=== PATIENT | male | born 1975 | race Caucasian/White ===

== ENCOUNTER 2020-03-20 09:31 | Emergency (ER) | payer OTHER, MEDICAID, SELFPAY ==
[2020-03-20 09:55] VITALS: BP 116/78; PULSE 65; RESP 16; TEMP 36.9; O2SAT 99
--- NOTE | 2020-03-20 10:16 | ED.UPPEXIN ---
HPI - Extremity Injury (Upper) General Chief Complaint: Extremity Injury, Upper Stated Complaint: cut left hand pointer finger Time Seen by Provider: 03/20/20 10:04 Source: patient Mode of arrival: Ambulatory Limitations: no limitations History of Present Illness HPI narrative: This is a 45-year-old male who comes to the emergency department with complaint of laceration to his 2nd finger on his left hand. He states he was cutting carrots when he sliced through the distal end at an angle striking a little bit of the nail. Patient denies any numbness or tingling. He states that has been bleeding. He denies any other injuries. He is unsure if his tetanus is up-to-date he thinks he might have received 2 years ago at a well check. Patient denies any other medical issues, no anticoagulant. He has not taken anything for pain. He is right-hand dominant, he does play [id number] regularly for hobby. Related Data Previous Rx's Medication Instructions Recorded oxycodone-acetaminophen 5 mg-325 See Rx Instructions PO Q4-6H PRN 08/17/18 mg tablet #14 tab Allergies Allergy/AdvReac Type Severity Reaction Status Date / Time No Known Drug Allergies Allergy Verified 08/23/18 14:17 Review of Systems Review of Systems ROS Unobtainable: All systems reviewed & are unremarkable except as noted in HPI and below Patient History Medical History (Updated 03/20/20 @ 10:19 by Kyara Adkins DO) Chicken pox (~1989) Family History Mother Parkinson's disease Grandfather Stroke Grandmother Cancer Grandfather Stroke Social History marital status: number of children: 1 household members: family education level: college 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 RESPIRATORY: Breath sounds equal bilaterally, no wheezes rales or rhonchi EXTREMITIES: Normal range of motion, no clubbing or edema. Neurovascularly intact. Patient has a laceration on the medial distal finger with an avulsion, includes the lateral edge of the nail. Cap refills less than 2 seconds. There is some active oozing of blood. Skin is flap down over the subcutaneous tissue. No obvious bony intervention. No tendon involvement noted. Patient does have full range of motion. NEUROLOGICAL: Cranial nerves II through XII grossly intact. Moving all extremities SKIN: Warm, dry, no petechiae, no rashes or lesions other than above. Initial Vital Signs Initial Vital Signs: Vital Signs Temperature 98.4 F 03/20/20 09:55 Pulse Rate 65 03/20/20 09:55 Respiratory Rate 16 03/20/20 09:55 Blood Pressure 116/78 03/20/20 09:55 Pulse Oximetry 99 03/20/20 09:55 Procedures Laceration Repair Laceration 1: Site: hand (2nd finger) Side (If applicable): left Size (cm): 1 Description: flap and irregular Depth: simple, single layer Local Anesthetic: lidocaine 1% Amount of anesthesia used (mL): 1 Pre-repair: wound explored, irrigated extensively and deep structures intact Skin layer closed with: steri-strips Size (cm): 5-0 (3) Number of sutures: 3 Technique: simple, interrupted Course Orders Ordered: ED Orders 03/20/20 10:15 XR finger LT min 2V Stat Discontinued Medications Acetaminophen (Acetaminophen 325 Mg Tablet) 650 mg PO NOW ONE Stop: 03/20/20 10:16 Last Admin: 03/20/20 10:27 Dose: 650 mg Documented by: SUSAN Diphtheria/Tetanus/Acell Pertussis (Tet,Diph,Pertuss(Acell),Vac/Pf 0.5 Ml Syringe) 0.5 ml IM .ONCE ONE Stop: 03/20/20 10:16 Last Admin: 03/20/20 10:27 Dose: 0.5 ml Documented by: SUSAN Lidocaine/Sodium Bicarbonate (Lido 1%/Sod Bicarb 8.4% (10ml) 10 Ml Syringe) 10 ml INJ NOW ONE Stop: 03/20/20 10:17 Last Admin: 03/20/20 10:27 Dose: 10 ml Documented by: SUSAN Vital Signs Vital signs: Vital Signs - 8 hr 03/20/20 09:55 Temperature 98.4 F Pulse Rate 65 Respiratory Rate 16 Blood Pressure 116/78 Pulse Oximetry 99 MDM - Extremity Injury (Upper) Imaging Data Extremity x-ray #1: Radiologist's Impression: [address] [id number] ReportSigned Patient: Rigoberto Crooks [facility]#: [id number]: 1975Acct:[id number]/Sex: 45 / MDate of Service: 03/20/20Loc: EDAccession Number: [id number] Procedure: XR finger LT min 2V Ordering Provider: Kyara Adkins D.O. PROCEDURE: XR FINGER LT MIN 2V INDICATIONS: 2nd finger, cut distal finger TECHNIQUE: PA view of the hand and two views of the index finger were acquired. COMPARISON: None. FINDINGS: Bones: No fractures or dislocations. No suspicious bony lesions. Soft tissues: No suspicious soft tissue calcifications. Soft tissue swelling is seen at the distal aspect of the index finger. No radiopaque foreign body is seen. IMPRESSION: Soft tissue swelling is seen at the distal tip of the 2nd finger. No acute osseous abnormality or radiopaque foreign body is seen. Dictated by: Rigoberto Alvarado M.D. on 03/20/2020 at 9:51 Approved by: Rigoberto Alvarado M.D. on 03/20/2020 at 9:52 Discharge Plan Departure Patient Disposition: Home Clinical Impression: Laceration of finger of left hand with damage to nail Instructions: DI for Laceration Repair -- Finger Activity Restrictions/Additional Instructions: Wound Care: Keep wound(s) clean and dry. Wash daily with soap and water only. Do not use over the counter products (alcohol or peroxide)on the wounds unless instructed by a physician. You may use a topical antibiotic ointment once or twice daily if you wish but it is not required. If wound condition worsens (increased/expanding redness, developing fluid blisters, or worsening pain), either contact your doctor for an urgent re-assessment , or return to the Emergency Department. Return to the Emergency Department for any new or worsening symptoms. Return to the ED, urgent care, or vist a primary care doctor for removal or suture or pebbles in 7-10 days Return if fever greater than 100.4 Fahrenheit, increased swelling, increasing pain or worsening symptoms such as increased discharge or spreading redness. Loss of sensation, new weakness, numbness or difficulty with use. Prescriptions: No Action oxycodone-acetaminophen [Percocet] 5-325 mg tablet See Rx Instructions PO Q4-6H PRN (Reason: painful procedure) Qty: 14 RF: 0 Referrals: Juan Ang MD [Primary Care Provider] -
[2020-03-20] MEDS: ACETAMINOPHEN 325 MG TABLET 650 MG PO (10:27)
[2020-03-20] MEDS: TET,DIPH,PERTUSS(ACELL),VAC/PF 0.5 ML SYRINGE IM (10:27)
[2020-03-20] MEDS: LIDO 1%/SOD BICARB 8.4% (10ML) 10 ML SYRINGE INJ (10:27)
[2020-03-20 11:33] VITALS: BP 118/81; PULSE 80; RESP 16; TEMP 36.7; O2SAT 98
== END 2020-03-20 11:42 | disposition home or self-care (01) ==
PROVIDERS: Emergency Provider Emergency Medicine; PCP Student in an Organized Health Care Education/Training Program
DX: S61.310A Laceration without foreign body of right index finger with damage to nail, initial encounter (principal); W26.0XXA Contact with knife, initial encounter; Z23 Encounter for immunization
CPT/HCPCS: 12001; 73140; 90471; 99283; STOP; 90715

== ENCOUNTER → 2020-04-25 09:10 | Outpatient (CLI) | payer OTHER, SELFPAY ==
[2020-04-25 09:27] LABS: Bacteria Urine None Seen; RBC Urine None Seen (0-5/HPF); WBC Urine None Seen (0-5/HPF)
[2020-04-25 10:15] LABS: Appearance Urine UA CLEAR; Bilirubin Urine UA NEGATIVE (NEGATIVE); Color Urine UA YELLOW; Glucose Urine UA NEGATIVE (Negative); Ketones Urine UA NEGATIVE (NEGATIVE); Leukocyte Esterase Urine UA NEGATIVE (NEGATIVE); Nitrite Urine UA NEGATIVE (Negative); Occult Blood Urine UA TRACE-INTACT (Negative); Protein Urine UA NEGATIVE (Negative); Urobilinogen Urine UA 0.2 E.U./dL (0.2)
[2020-04-25 10:29] LABS: Culture Indicated Urine Cult Not Indicated; Urine Comments Microscopic Normal
[2020-04-25 11:02] LABS: Add Manual Diff / Slide Review NO; Basophils Absolute Auto 0 /uL (0-100); Basophils Percent Auto 0.5 % (0-2); Eosinophils Absolute Auto 100 /uL (0-450); Eosinophils Percent Auto 1.9 % (2-4); Hematocrit 42.6 % (41-53); Hemoglobin 14.5 g/dL (13.5-17.5); Lymphocytes Absolute Auto 1700 /uL (1100-4500); Lymphocytes Percent Auto 27.7 % (25-40); Mean Corpuscular Hemoglobin 31.6 PG (26-34); Mean Corpuscular Volume 92.9 fL (80-100); Monocytes Absolute Auto 600 /uL (0-900); Monocytes Percent Auto 10.1 % (3-14); Neutrophils Absolute Auto 3700 /uL (1500-7000); Neutrophils Percent Auto 59.8 % (50-75); Platelet Count 242 X10^3/uL (150-400); Red Blood Cell Count 4.59 X10^6/uL (4.5-5.9); Red Cell Distribution Width 12.7 % (11.6-14.8); White Blood Cell Count 6.2 X10^3/uL (4.5-11.0)
[2020-04-25 11:07] LABS: Prothrombin Time 11.5 SECONDS (10.1-12.7)
[2020-04-25 11:10] LABS: PTT Partial Thromboplastin Tim 30 SECONDS (26.4-36.2)
[2020-04-25 11:19] LABS: Protein (Total) Urine Random 6 mg/dL (0-12); Protein Creatinine Ratio Urine 0.04 GRAM/24H
[2020-04-25 11:22] LABS: Collection Time Urine 24 Hours; Creatinine 24 Hour Urine 2286 mg/day (1000-2000); Creatinine Urine Random 120.3 mg/dL; Patient Height Urine 71 inches; Patient Weight Urine 200 lbs; Protein (Total) Urine Random 7 mg/dL (0-12); Total Protein 24 Hour Urine 133 mg/day (42-225); Total Volume Urine 1900 mL
[2020-04-25 11:26] LABS: Creat Clearance, Corrected 155.5 mL/MIN; Creatinine, Serum (CRCL) 0.84 mg/dL (0.66-1.25); Microalbumin Urine Random < 0.6 mg/dL (0-1.6)
[2020-04-25 11:31] LABS: Alanine Aminotransferase 20 IU/L (<50); Albumin 4.5 g/dL (3.5-5.0); Albumin Globulin Ratio 1.8 (1.0-2.8); Aspartate Aminotransferase 21 IU/L (17-59); BUN Creatinine Ratio 18.6 (6-22); Bilirubin Total 0.6 mg/dL (0.2-1.3); Blood Urea Nitrogen 16 mg/dL (9-20); Calcium 9.6 mg/dL (8.4-10.2); Carbon Dioxide 30 mmol/L (22-32); Chloride 101 mmol/L (98-107); Cholesterol 218 mg/dL (140-199); Estimated Glomerular Filt Rate > 60.0 mL/min (>60); Globulin 2.5 g/dL (1.7-4.1); Glucose 96 mg/dL (70-100); HDL Cholesterol 70 mg/dL (40-60); HEMOLYSIS < 15 (0-50); LDL Cholesterol Calculated 135 mg/dL (<100); Phosphorous 3.6 mg/dL (2.5-4.5); Potassium 4.3 mmol/L (3.4-5.1); Sodium 137 mmol/L (137-145); Triglycerides 65 mg/dL (35-150); VLDL Cholesterol Calculated 13 mg/dL (2-30)
[2020-04-25 11:33] LABS: Alkaline Phosphatase < 20 U/L (38-126)
== END ==
PROVIDERS: PCP Student in an Organized Health Care Education/Training Program; Referring Provider Student in an Organized Health Care Education/Training Program; Visit Provider Student in an Organized Health Care Education/Training Program
DX: Z00.5 Encounter for examination of potential donor of organ and tissue (principal)
CPT/HCPCS: 36415; 80053; 80061; 81001; 82043; 82570; 82575; 84100; 84156; 85025; 85610; 85730; 86900; 86901

== ENCOUNTER → 2020-04-26 14:43 | Outpatient (CLI) | payer OTHER, SELFPAY ==
--- NOTE | 2020-04-26 14:46 | DI.US.S_ITS ---
PROCEDURE: US RENAL COMPLETE INDICATIONS: PRE-DONATION TECHNIQUE: Real-time scanning was performed of the kidneys and bladder, with image documentation. COMPARISON: None. FINDINGS: Kidneys: Kidneys are normal in size. Right kidney measures 11.3 cm long; left kidney measures 11.9 cm long. Right renal cortical thickness is 1.9 cm; left renal cortical thickness is 1.9 cm. Renal cortical echotexture is normal. No hydronephrosis or nephrolithiasis. No suspicious solid mass lesions. Bladder: Pre-void bladder volume is 393 mL. Post-void residual is 0 mL. Pre-void images demonstrate no intraluminal masses or stones. On pre-void images, both of the ureteral jets are noted with color Doppler interrogation. (Of note, ureteral jets may not be detectable in up to 25% of cases due to insufficient differences in specific gravity between ureteral and bladder urine). Miscellaneous: No free pelvic fluid. IMPRESSION: Normal examination as above Dictated by: Colin Mullins M.D. on 04/26/2020 at 15:22 Approved by: Colin Mullins M.D. on 04/26/2020 at 15:23
== END ==
PROVIDERS: PCP Student in an Organized Health Care Education/Training Program; Referring Provider Student in an Organized Health Care Education/Training Program; Visit Provider Student in an Organized Health Care Education/Training Program
DX: Z00.5 Encounter for examination of potential donor of organ and tissue (principal)
CPT/HCPCS: 76770

== ENCOUNTER → 2021-08-02 13:58 | Outpatient (CLI) | payer OTHER, SELFPAY ==
[2021-08-02 15:00] LABS: Add Manual Diff / Slide Review NO; Basophils Absolute Auto 0 /uL (0-100); Basophils Percent Auto 0.5 % (0-2); Eosinophils Absolute Auto 100 /uL (0-450); Eosinophils Percent Auto 1.4 % (2-4); Hematocrit 44.1 % (41-53); Hemoglobin 14.8 g/dL (13.5-17.5); Lymphocytes Absolute Auto 2100 /uL (1100-4500); Lymphocytes Percent Auto 26.6 % (25-40); Mean Corpuscular HGB Conc 33.5 % (30-36); Mean Corpuscular Hemoglobin 30.8 PG (26-34); Mean Corpuscular Volume 92.1 fL (80-100); Monocytes Absolute Auto 800 /uL (0-900); Monocytes Percent Auto 9.9 % (3-14); Neutrophils Absolute Auto 4900 /uL (1500-7000); Neutrophils Percent Auto 61.6 % (50-75); Platelet Count 248 X10^3/uL (150-400); Red Blood Cell Count 4.79 X10^6/uL (4.5-5.9); Red Cell Distribution Width 13.4 % (11.6-14.8)
[2021-08-02 15:04] LABS: Prothrombin Time 11.4 SECONDS (10.1-12.7)
[2021-08-02 15:09] LABS: Alanine Aminotransferase 22 IU/L (<50); Albumin 4.8 g/dL (3.5-5.0); Albumin Globulin Ratio 1.8 (1.0-2.8); Alkaline Phosphatase 23 U/L (38-126); Aspartate Aminotransferase 25 IU/L (17-59); BUN Creatinine Ratio 19.8 (6-22); Bilirubin Total 0.7 mg/dL (0.2-1.3); Blood Urea Nitrogen 16 mg/dL (9-20); Calcium 9.5 mg/dL (8.4-10.2); Carbon Dioxide 28 mmol/L (22-32); Chloride 103 mmol/L (98-107); Cholesterol 246 mg/dL (140-199); Estimated Glomerular Filt Rate > 60 mL/min (>60); Globulin 2.7 g/dL (1.7-4.1); Glucose 93 mg/dL (70-100); HDL Cholesterol 72 mg/dL (40-60); LDL Cholesterol Calculated 153 mg/dL (<100); Potassium 4.1 mmol/L (3.4-5.1); Sodium 139 mmol/L (137-145); Total Protein 7.5 g/dL (6.3-8.2); Triglycerides 105 mg/dL (35-150); VLDL Cholesterol Calculated 21 mg/dL (2-30)
[2021-08-02 16:09] LABS: PTT Partial Thromboplastin Tim 32 SECONDS (26.4-36.2)
[2021-08-02 16:50] LABS: Creatinine Urine Random 126.4 mg/dL
[2021-08-02 16:51] LABS: HEMOLYSIS 16 (0-50); Phosphorous 3.7 mg/dL (2.5-4.5)
[2021-08-02 16:55] LABS: Microalbumin Urine Random < 0.6 mg/dL (0-1.6)
== END ==
PROVIDERS: PCP Student in an Organized Health Care Education/Training Program; Referring Provider Student in an Organized Health Care Education/Training Program; Visit Provider Student in an Organized Health Care Education/Training Program
DX: Z00.5 Encounter for examination of potential donor of organ and tissue (principal)
CPT/HCPCS: 36415; 80053; 80061; 82043; 82570; 84100; 85025; 85610; 85730

== ENCOUNTER 2022-02-15 15:06 | Emergency (ER) | payer OTHER, MEDICARE, SELFPAY ==
[2022-02-15 15:20] VITALS: BP 119/75; PULSE 83; RESP 18; TEMP 36.8; O2SAT 98; BMI 27.1
--- NOTE | 2022-02-15 16:14 | ED_ITS ---
HPI - Skin/Abscess/Foreign Bdy General Chief complaint: Skin/Abscess/Foreign Body Stated complaint: post op infection Time Seen by Provider: 02/15/22 16:14 Source: patient Mode of arrival: Ambulatory Limitations: no limitations History of Present Illness HPI narrative: 47-year-old male nonsmoker presents with a painful lesion in a surgical scar. He donated a kidney 40 days ago at [facility] and has been fine and well but over the past few days has developed some increasing pain, redness and minimal swelling at the surgical site. He denies systemic findings such as fever, chills nor nausea or vomiting. He denies any chest pain or shortness of breath. He has no abdominal pain, constipation or difficulty with urination. He has been in close contact with his surgical team and has shared imaging and was encouraged to come here for evaluation Related Data Previous Rx's Medication Instructions Recorded amoxicillin 875 mg-potassium 1 tab PO Q12H #14 tabs 02/15/22 clavulanate 125 mg tablet doxycycline hyclate 100 mg tablet 100 mg PO BID #14 tabs 02/15/22 Allergies Allergy/AdvReac Type Severity Reaction Status Date / Time No Known Drug Allergies Allergy Verified 03/27/20 15:28 Review of Systems Review of Systems Narrative: GENERAL: Denies chills, fatigue, malaise, fever, sweats. HEENT: Denies sinus pain, ear pain, sore throat, difficulty swallowing, dizziness. RESPIRATORY: Denies dyspnea, cough, wheezing, hemoptysis, sputum. CARDIOVASCULAR: Denies chest pain, palpitations, orthopnea, edema, GASTROINTESTINAL: Denies nausea, vomiting, abdominal pain, diarrhea, constipation, melena. : Denies dysuria, frequency, incontinence, hematuria, urinary retention. MUSCULOSKELETAL: denies weakness, joint pain, or bony pain SKIN: See HPI NEUROLOGIC: Denies weakness, headache, numbness, change in speech, confusion, seizures, incoordination. PSYCHIATRIC: No concerning psychosocial issues. 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 Well-developed patient, in mild distress. HEAD: Atraumatic. Normocephalic. EYES: Pupils equal round and reactive. Extraocular motions intact. No scleral icterus. No injection or drainage. ENT: Nose without bleeding, purulent drainage. Throat without erythema, tonsillar hypertrophy or exudate. Airway patent. NECK: Trachea midline. Non tender CARDIOVASCULAR: Regular rate and rhythm without murmurs, gallops, or rubs. RESPIRATORY: Clear to auscultation. Breath sounds equal bilaterally. No wheezes, rales, or rhonchi. GASTROINTESTINAL: Abdomen soft, superpubic incision with central erythema and fluctuance with minimal surrounding erythema , nondistended. EXTREMITIES: No edema or joint tenderness. BACK: Nontender without deformity or crepitance. No flank tenderness. NEURO: AOx3. SKIN: No rash or erythema of visible areas Initial Vital Signs Initial Vital Signs: Vital Signs Temperature 98.3 F 02/15/22 15:20 Pulse Rate 83 02/15/22 15:20 Respiratory Rate 18 02/15/22 15:20 Blood Pressure 119/75 02/15/22 15:20 Pulse Oximetry 98 02/15/22 15:20 Oxygen Delivery Method 02/15/22 15:20 Procedures Abscess I/D I&D #1: Site: abdomen Local Anesthetic: lidocaine 2% Amount of anesthesia used (mL): 3 Technique: incised with #11 blade Amount of fluid expressed (mL): 3 Irrigation: No Packing used?: none Course Orders Ordered: ED Orders 02/15/22 16:35 Wound Culture and Gram Stain Stat Discontinued Medications Doxycycline Hyclate (Doxycycline Hyclate 100 Mg Tablet) 100 mg PO NOW ONE Stop: 02/15/22 16:40 Last Admin: 02/15/22 16:41 Dose: 100 mg Documented By: GINA Lidocaine HCl (Lidocaine 2% Inj Mdv 20ml) 1 ml SUBCUT NOW ONE Stop: 02/15/22 16:18 Last Admin: 02/15/22 16:40 Dose: 1 ml Documented By: GINA Vital Signs Vital signs: Vital Signs - 8 hr 02/15/22 15:20 Temperature 98.3 F Pulse Rate 83 Respiratory Rate 18 Blood Pressure 119/75 Pulse Oximetry 98 Oxygen Delivery Method Room Air MDM - Skin/Abscess/Foreign Bdy MDM Narrative Medical decision making narrative: Patient with very reassuring history and physical exam with minimal fluctuance and erythema at the incision line. Ultrasound at the bedside notes of fluid collection consistent with abscess. Purulent material obtained, culture sent, doxycycline chosen given coverage for staph, strep and MRSA. Low suspicion for any significant intra-abdominal findings. Patient has been given extensive return precautions questions answered to her apparent satisfaction Discharge Plan Departure Patient Disposition: Home Clinical Impression: Abscess of skin or subcutaneous tissue Instructions: DI for Skin Abscess Activity Restrictions/Additional Instructions: *You have been diagnosed with [incisional abscess] *What to do: *Please continue to take your regular medications as directed. [x ] New medication written as a paper prescription *Please follow up with your primary care provider in 2-3 days, call for an appointment. Let them know you were seen in the Emergency Department and that we ask that you be seen in follow up. We will electronically transmit a record of today's note if your PCP is in our system *Return to Emergency Department if you should have any new, worsening or concerning symptoms, such as [fever greater than 101 F, shaking chills, worsening pain, persistent vomiting or other bothersome symptoms] Prescriptions: New amoxicillin-pot clavulanate 875-125 mg tablet 1 tab PO Q12H Qty: 14 0RF doxycycline hyclate 100 mg tablet 100 mg PO BID Qty: 14 0RF Referrals: Juan Ang MD [Primary Care Provider] -
[2022-02-15] MEDS: LIDOCAINE 2% INJ MDV 20ML SUBCUT (16:40)
[2022-02-15] MEDS: DOXYCYCLINE HYCLATE 100 MG TABLET PO (16:41)
[2022-02-15 17:05] VITALS: BP 116/79; PULSE 71; O2SAT 98
== END 2022-02-15 17:08 | disposition home or self-care (01) ==
PROVIDERS: Emergency Provider Emergency Medicine; PCP Student in an Organized Health Care Education/Training Program
DX: L02.211 Cutaneous abscess of abdominal wall (principal)
CPT/HCPCS: 10060; 87070; 87075; 87077; 87147; 87186; 87205; 99283